=== PATIENT | male | born 2000 | race African-American/Black ===

== ENCOUNTER 2024-08-18 19:44 | Inpatient (IN) | payer MEDICAID ==
[~2024-08-18] VITALS: Ht 154.9 cm; Wt 76.3 kg
[2024-08-18] MEDS ORDERED: LORazepam 2 MG TABLET PO PRN (20:45)
[2024-08-18] MEDS ORDERED: HALOPERIDOL 5 MG TABLET PO PRN (20:45)
[2024-08-18 23:01] LABS: GLUCOMETER DEV NAME(LOC) POC.BV; POC SARS-COV2 AG, FIA NEGATIVE (NEGATIVE)
[2024-08-19 00:51] VITALS: BP 118/80; PULSE 98; TEMP 97.8
[2024-08-19] MEDS ORDERED: INFLUENZA VIRUS VACCINE TVS (6MO+) 2024-25/PF 45 MCG/0.5 ML SYRINGE IM. ONE (01:00)
[2024-08-19 08:08] VITALS: RESP 17
[2024-08-19 09:40] LABS: GLUCOMETER DEV NAME(LOC) POC.BV; POC SARS-COV2 AG, FIA NEGATIVE (NEGATIVE)
[2024-08-19] MEDS: DiphenhydrAMINE HCL 50 MG/ML VIAL IM ONE (11:09)
[2024-08-19] MEDS: LORazepam 2 MG/ML VIAL IM ONE (11:10)
[2024-08-19] MEDS: HALOPERIDOL LACTATE 5 MG/ML VIAL IM ONE (11:10)
[2024-08-19] MEDS: ZOLPIDEM TARTRATE 10 MG TABLET PO PRN (20:00)
[2024-08-20] MEDS ORDERED: SERT-440 PO ×2 (07:31→11:55)
[2024-08-20] MEDS ORDERED: PALI234D IM ×2 (07:31→11:55)
[2024-08-20] MEDS ORDERED: PALI3TAB14 PO (07:31)
[2024-08-20] MEDS ORDERED: ARIP10642 IM ×2 (07:31→11:55)
[2024-08-20 08:07] VITALS: RESP 17
[2024-08-20] MEDS: SERTRALINE HCL 100 MG TABLET PO SCH (09:14)
[2024-08-20] MEDS ORDERED: PROP20TA96 PO (11:41)
[2024-08-20] MEDS ORDERED: PALIPERIDONE PALMITATE 234 MG/1.5 ML SYRINGE IM SCH (16:00)
[2024-09-16] MEDS ORDERED: ARIPiprazole LAUROXIL ER SUSPENSION 1064 MG/3.9 ML SYRINGE IM SCH (09:00)
== END 2024-08-20 15:41 | disposition home or self-care (01) | DRG 750 ==
LOC: B3A 20:45
PROVIDERS: ADMIT Psychiatry & Neurology Psychiatry; ATTEND Psychiatry & Neurology Psychiatry
PROC: GZHZZZZ Group Psychotherapy (ICD-10-PCS; principal; 2024-08-19)
DX: F20.0 Paranoid schizophrenia (principal); E66.9 Obesity, unspecified; F12.10 Cannabis abuse, uncomplicated; Z68.31 Body mass index [BMI] 31.0-31.9, adult; G47.00 Insomnia, unspecified; F32.A Depression, unspecified; Z20.822 Contact with and (suspected) exposure to COVID-19; Z79.899 Other long term (current) drug therapy
CPT/HCPCS: J1200; J1630; J2060